=== PATIENT | male | born 1965 | race Two or more races ===

== ENCOUNTER 2017-01-21 10:35 | Emergency (ER) | payer OTHER ==
[~2017-01-21] VITALS: Wt 74.5 kg
[~2017-01-21 10:35] MED LIST: NAPR-260 PO
[2017-01-21] MEDS ORDERED: NAPR-260 PO (12:04)
[2017-01-21] MEDS ORDERED: MED4DP PO (12:04)
[2017-01-21] MEDS ORDERED: CEPH500C PO (12:04)
--- NOTE | 2017-01-21 12:14 | ERD ---
ER Documentation Chief Complaint Chief Complaint RIGHT ELBOW PAIN, ONSET TODAY, NO INJURY HPI 51-year-old male complaining of right elbow pain. Patient denies any acute injury he states that the elbow is painful with touching. Is able to move without difficulty. Has never had this before. Has not taken any medications for symptoms. States that he does a lot of lifting at work with heavy boxes. ROS All systems reviewed and are negative except as per history of present illness. Medications Home Meds Active Scripts Methylprednisolone* (Medrol* DOSE PACK) 4 Mg/Dose-Pack Tab.ds.pk, 4 MG PO . DIRECTED, #1 PACKET Prov:HILL DUNCAN PA-C 01/21/17 Naproxen* (Naprosyn*) 500 Mg Tablet, 500 MG PO BID Y for PAIN AND/OR INFLAMMATION, #30 TAB Prov:HILL DUNCAN PA-C 01/21/17 Cephalexin* (Cephalexin*) 500 Mg Capsule, 500 MG PO Q6, #28 CAP Prov:HILL DUNCAN PA-C 01/21/17 Naproxen* (Naprosyn*) 500 Mg Tablet, 500 MG PO BID Y for PAIN AND/OR INFLAMMATION, #20 TAB Prov:KAILEY MCMILLAN DO 08/15/14 Allergies Allergies: Coded Allergies: No Known Allergy (Unverified , 12/03/13) PMhx/Soc Medical and Surgical Hx: pt denies Medical Hx, pt denies Surgical Hx History of Surgery: No Anesthesia Reaction: No Hx Neurological Disorder: No Hx Respiratory Disorders: No Hx Cardiac Disorders: No Hx Psychiatric Problems: No Hx Miscellaneous Medical Probl: No Hx Alcohol Use: Yes (occ) Hx Substance Use: Yes (marijuana) Hx Tobacco Use: Yes Smoking Status: Smoker,current status unk Physical Exam Vitals Vital Signs Date Time Temp Pulse Resp B/P Pulse Ox O2 Delivery O2 Flow Rate FiO2 01/21/17 10:42 99.3 108 17 114/65 98 Physical Exam GENERAL: The patient is well-appearing, well-nourished, in no acute distress CHEST: Clear to auscultation bilaterally. There are no rales, wheezes or rhonchi. HEART: Regular rate and rhythm. No murmurs, clicks, rubs or gallops. No S3 or S4. EXTREMITIES: Tender to palpation over right elbow. No obvious deformity. Normal flexion and extension. Strength 5 out of 5. Normal radian, ulnar, median nerve innervation. NEUROLOGIC: Alert and oriented. Cranial nerves II through XII intact. Motor strength in all 4 extremities with 5 out of 5 strength. Sensation grossly intact. Normal speech and gait. Babinski negative. DTR 2+ throughout. SKIN: There is no apparent rash or petechiae. The skin is warm and dry. Procedures/MDM MDM: 51-year-old female complaining of right elbow pain. Patient likely has early bursitis or overuse injury. I have low suspicion for acute fracture dislocation. I have low suspicion for septic joint. I will treat patient for possible early bacterial bursitis. I have low suspicion for neurodeficit. Patient is discharged with strict ER precautions and recommended to follow-up with primary care within 1-2 days for close evaluation. Patient is told if symptoms change or worsen to return to the ER. All questions answered at discharge. Departure Diagnosis: Primary Impression: Bursitis Condition: Stable Patient Instructions: Bursitis, Elbow ([place]) Additional Instructions: FOLLOW UP WITH YOUR PRIMARY CARE PHYSICIAN TOMORROW.Return to this facility if you are not improving as expected. HILL DUNCAN PA-C Jan 21, 2017 12:14
== END 2017-01-21 12:08 | disposition home or self-care (01) ==
LOC: FTE 10:35
DX: M70.11 Bursitis, right hand (principal); F17.210 Nicotine dependence, cigarettes, uncomplicated; Y93.9 Activity, unspecified
CPT/HCPCS: 99284